=== PATIENT | male | born 2000 | race Caucasian/White ===

== ENCOUNTER 2020-02-27 09:49 | Emergency (ER) | payer OTHER ==
[~2020-02-27] VITALS: Ht 172.7 cm; Wt 78.6 kg
[2020-02-27 09:50] VITALS: BP 126/78
== END 2020-02-27 10:53 | disposition home or self-care (01) ==
LOC: M ED 09:49
DX: N52.9 Male erectile dysfunction, unspecified (principal); Z72.0 Tobacco use; Z86.19 Personal history of other infectious and parasitic diseases